=== PATIENT | female | born 1945 | race Caucasian/White ===

== ENCOUNTER → 2016-06-14 | Outpatient (CLI) | payer MEDICARE, MEDICAID ==
[~2016-06-14] MED LIST: BENA40TA2 PO; HYDR25TA6 PO; UNKNOWN HTN MED
== END | disposition home or self-care (01) ==
LOC: CFH 15:38
PROVIDERS: ATTEND Nurse Practitioner
DX: R91.1 Solitary pulmonary nodule (principal)
CPT/HCPCS: 71250